=== PATIENT | male | born 1980 | race Caucasian/White ===

== ENCOUNTER 2017-05-23 15:26 | Emergency (ER) | payer OTHER ==
--- NOTE | 2017-05-23 16:19 | ED CLINICAL REPORT ---
Clinical Report - Physicians/Mid Levels [facility] [address] [place] [address] 05/23/2017 15:27 Patient: JEFFERSON RAY Time Seen: 15:32; upon arrival, initial patient contact, initial documentation, patient care assumed. Arrived- By private vehicle. Historian- patient. HISTORY OF PRESENT ILLNESS Chief Complaint: LESION. This started today and is still present. Not itchy or burning. It is described as painful. It has been located on the right hand. A possible cause has been identified. He had a recent spider bite (says he was reaching into wood pile and got bit by brown recluse spider). Similar symptoms previously: Chronically, as bad. Recent medical care: Not recently seen/assessed. REVIEW OF SYSTEMS No fever. All systems otherwise negative, except as recorded above. PAST HISTORY See nurses notes. ADDITIONAL SURGERIES: Tonsillectomy. Urethra repair. --15:44 Mitesh Vazquez R.N. SOCIAL HISTORY Heavy tobacco smoker. History of heavy IV drug use: heroin, methamphetamines. Recently used drugs. No alcohol use. No recent travel. Is a local resident. FAMILY HISTORY Negative. ADDITIONAL NOTES The nursing notes have been reviewed with agreement regarding the chief complaint, HPI, ROS, PMH and patient medications and allergies. PHYSICAL EXAM Vital Signs: 05/23/2017 15:37 BP: 146/90. HR: 119. RR: 20. O2 saturation: 100%. Temp: 97.7 F. Have been reviewed as abnormal and appear to be correct. Blood pressure normal. Tachycardic. Respiratory rate normal. Temperature normal. Oxygen saturation normal. Appearance: Alert. Oriented X3. No acute distress. (pt drowsy, and appears under the influence). Eyes: Pupils equal, round and reactive to light. Conjunctivae and eyelids normal. Neck: Neck supple. Respiratory: No respiratory distress. Skin: Skin warm and dry. Normal skin color. No rash. Normal skin turgor. (pt's skin is a mess, dirty, unkept, numerous iv track berg, scars, some are scabbed over, R top of hand near 4th and 5th metacarpal swollen, warm and erythema, no abscess seen, and other wounds/berg do not appear to be infected). Extremities: Normal external inspection. Extremities nontender. Neuro: Oriented X 3. No motor deficit. No sensory deficit. PROGRESS AND PROCEDURES Patient counseled in person regarding the patient's stable condition and diagnosis. Differential Diagnosis: Other possible considerations: substance abuse, iv track berg, cellulitis, abscess, insect bite/sting, mrsa. Above considerations are based on history and physical exam. Differential diagnosis was discussed with patient. Disposition: Discharged home in good and unchanged condition (16:03). Condition: good and stable. CLINICAL IMPRESSION Cellulitis of the right hand. Chronic substance abuse- heroin, methamphetamines with intoxication. INSTRUCTIONS Warnings: GENERAL WARNINGS: Return or contact your physician immediately if your condition worsens or changes unexpectedly, if not improving as expected, or if other problems arise. Specifically return if problem worsens. Prescription Medications: Keflex 500 mg: take 1 capsule orally every 6 hours for 10 days. No refill. Follow-up: Follow up with your doctor in about three days as needed and for wound check. Call for an appointment. Summary of care provided to patient. Understanding of the discharge instructions verbalized by patient. (Electronically signed by Elli Aleman A.R.N.P. 05/23/2017 18:20)
--- NOTE | 2017-05-23 16:19 | ED NURSING NOTES ---
Clinical Report - Nurses [facility] [address] [place] [address] 05/23/2017 15:27 Patient: JEFFERSON RAY TRIAGE Triage time 15:37. Acuity: LEVEL 3. Chief Complaint: INSECT BITE . abcess. Alert. No acute distress. SEPSIS SCREEN: Sepsis Screen. Infection suspected/documented. Heart rate greater than 90. Temperature not greater than 38.3 degrees C (101 degrees F). Respiratory rate not greater than 20. --15:45 Mitesh Vazquez R.N. 15:37 05/23/17. BP: 146/90. HR: 119. RR: 20. O2 saturation: 100% on room air. Temp: 97.7 F (oral). Pain level now 9/10. --15:45 Mitesh Vazquez R.N. Weight: 88.4 kg stated. Height/Length: 73 inches Per Patient. BMI: 25.7. --15:40 Mitesh Vazquez R.N. Medications None. --15:43 Mitesh Vazquez R.N. Allergies No Known Drug Allergy. --15:43 Mitesh Vazquez R.N. History Arrived by private vehicle. Historian: patient. Primary physician ([facility]). ( states he has a brown recluse bite from reaching into a wood pile this morning.). Location - right hand. This started just prior to arrival. It is described as painful. 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 SOCIAL HX: Heavy tobacco smoker (cigarette)- less than 1 pack per day. History of IV drug use: heroin, methamphetamines. Recently used drugs yesterday. No alcohol use. ABUSE ASSESSMENT: Abuse assessment: The patient was asked "Do you feel safe in your home?". No report of abuse. FALL RISK ASSESSMENT: Fall risk assessment completed. No fall risk identified. NUTRITIONAL RISK ASSESSMENT: The nutritional risk assessment revealed no deficiencies. FUNCTIONAL ASSESSMENT: Functional assessment: no impairments noted. LEARNING NEEDS ASSESSMENT: The learning needs assessment revealed no barriers. SKIN INTEGRITY ASSESSMENT: Skin integrity risk assessment completed. No skin integrity risk identified. --15:45 Mitesh Vazquez R.N. ADDITIONAL SURGERIES: Tonsillectomy. Urethra repair. --15:44 Mitesh Vazquez R.N. Interventions ID band on patient. To treatment room. --15:45 Mitesh Vazquez R.N. PHYSICAL ASSESSMENT Ambulatory to room. GENERAL / NEURO / PSYCH: Appears anxious. ( appears to be under the influence of street drugs. Pt is eating ice cream in triage and difficult to redirect). RESPIRATORY: Respirations not labored. CVS: Pulses within normal limits. GI / : Abdomen nontender. SKIN: Skin lesion present- multiple begining abcesses to bilat arms. Fresh track berg to bilat arms. Extensive scar tissue. Swelling on the right forearm and right hand. --15:47 Mitesh Vazquez R.N. NURSING PROGRESS NOTES The plan of care for this patient has been created. Head of bed elevated. Call light placed in reach. Bed placed in lowest position. Brakes of bed on. Patient ready for evaluation- chart flagged. --15:47 Mitesh Vazquez R.N. 16:17 05/23/2017 Ibuprofen PO Tablets 800 mg given. Allergies verified and confirmed 5 rights. --16:32 Temitope Keating. DISPOSITION / DISCHARGE Departure time: 16:23 May 23 2017. Condition at departure: improved. The goals identified in the patient's plan of care were met. No learning barriers present. Discharge instructions provided and reviewed with the patient. Reviewed warnings (Patient verbalized understanding of importance of taking entire course of antibiotics.). Reviewed medication(s). Prescription(s) given to the patient (keflex). Treatments reviewed. Reviewed referral to a primary care physician for followup. Patient verbalized understanding. Written instructions provided in Mongolian. The patient was discharged by the nurse practitioner. He was discharged home and unaccompanied at time of discharge. He left the Emergency Department ambulatory and via private vehicle. FALL RISK ASSESSMENT: Fall risk assessment completed. No fall risk identified. --16:28 Temitope Keating 16:23 05/23/17. BP: deferred. HR: deferred. RR: deferred. O2 saturation: deferred. Temp: deferred. Pain level now deferred. --16:28 Temitope Keating. Locked/Released at 05/23/2017 16:32 by Temitope Keating,
--- NOTE | 2017-05-23 16:19 | ED NURSING NOTES ---
Clinical Report - Nurses [facility] [address] [place] [address] 05/23/2017 15:27 Patient: JEFFERSON RAY TRIAGE Triage time 15:37. Acuity: LEVEL 3. Chief Complaint: INSECT BITE . abcess. Alert. No acute distress. SEPSIS SCREEN: Sepsis Screen. Infection suspected/documented. Heart rate greater than 90. Temperature not greater than 38.3 degrees C (101 degrees F). Respiratory rate not greater than 20. --15:45 Mitesh Vazquez R.N. 15:37 05/23/17. BP: 146/90. HR: 119. RR: 20. O2 saturation: 100% on room air. Temp: 97.7 F (oral). Pain level now 9/10. --15:45 Mitesh Vazquez R.N. Weight: 88.4 kg stated. Height/Length: 73 inches Per Patient. BMI: 25.7. --15:40 Mitesh Vazquez R.N. Medications None. --15:43 Mitesh Vazquez R.N. Allergies No Known Drug Allergy. --15:43 Mitesh Vazquez R.N. History Arrived by private vehicle. Historian: patient. Primary physician ([facility]). ( states he has a brown recluse bite from reaching into a wood pile this morning.). Location - right hand. This started just prior to arrival. It is described as painful. 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 SOCIAL HX: Heavy tobacco smoker (cigarette)- less than 1 pack per day. History of IV drug use: heroin, methamphetamines. Recently used drugs yesterday. No alcohol use. ABUSE ASSESSMENT: Abuse assessment: The patient was asked "Do you feel safe in your home?". No report of abuse. FALL RISK ASSESSMENT: Fall risk assessment completed. No fall risk identified. NUTRITIONAL RISK ASSESSMENT: The nutritional risk assessment revealed no deficiencies. FUNCTIONAL ASSESSMENT: Functional assessment: no impairments noted. LEARNING NEEDS ASSESSMENT: The learning needs assessment revealed no barriers. SKIN INTEGRITY ASSESSMENT: Skin integrity risk assessment completed. No skin integrity risk identified. --15:45 Mitesh Vazquez R.N. ADDITIONAL SURGERIES: Tonsillectomy. Urethra repair. --15:44 Mitesh Vazquez R.N. Interventions ID band on patient. To treatment room. --15:45 Mitesh Vazquez R.N. PHYSICAL ASSESSMENT Ambulatory to room. GENERAL / NEURO / PSYCH: Appears anxious. ( appears to be under the influence of street drugs. Pt is eating ice cream in triage and difficult to redirect). RESPIRATORY: Respirations not labored. CVS: Pulses within normal limits. GI / : Abdomen nontender. SKIN: Skin lesion present- multiple begining abcesses to bilat arms. Fresh track berg to bilat arms. Extensive scar tissue. Swelling on the right forearm and right hand. --15:47 Mitesh Vazquez R.N. NURSING PROGRESS NOTES The plan of care for this patient has been created. Head of bed elevated. Call light placed in reach. Bed placed in lowest position. Brakes of bed on. Patient ready for evaluation- chart flagged. --15:47 Mitesh Vazquez R.N. 16:17 05/23/2017 Ibuprofen PO Tablets 800 mg given. Allergies verified and confirmed 5 rights. --16:32 Temitope Keating. DISPOSITION / DISCHARGE Departure time: 16:23 May 23 2017. Condition at departure: improved. The goals identified in the patient's plan of care were met. No learning barriers present. Discharge instructions provided and reviewed with the patient. Reviewed warnings (Patient verbalized understanding of importance of taking entire course of antibiotics.). Reviewed medication(s). Prescription(s) given to the patient (keflex). Treatments reviewed. Reviewed referral to a primary care physician for followup. Patient verbalized understanding. Written instructions provided in Mongolian. The patient was discharged by the nurse practitioner. He was discharged home and unaccompanied at time of discharge. He left the Emergency Department ambulatory and via private vehicle. FALL RISK ASSESSMENT: Fall risk assessment completed. No fall risk identified. --16:28 Temitope Keating 16:23 05/23/17. BP: deferred. HR: deferred. RR: deferred. O2 saturation: deferred. Temp: deferred. Pain level now deferred. --16:28 Temitope Keating. Locked/Released at 05/23/2017 16:32 by Temitope Keating,
--- NOTE | 2017-05-23 18:20 | ED MED RECONCILIATION SUMMARY ---
Patient: JEFFERSON RAY Medication Reconciliation Report [facility] VisitID: [id number] [address] [place] [address] 36y, M Registration Date/Time: 05/23/2017 Weight: 88.4 kg Height/Length: 73 in. BMI: 25.7 ALLERGIES: No Known Drug Allergy The patient's Home Medications are listed below: NONE. The source(s) of the original Home Medication information: Not obtained. The following Medications were given to the patient in the Emergency Department: Ibuprofen [PO] PO 800 mg, administered: 05/23/2017 4:17:00 PM The following Medications were prescribed to the patient: Keflex 500 mg: take 1 capsule orally every 6 hours for 10 days. No refill. -- Elli Aleman A.R.N.P.
--- NOTE | 2017-05-23 18:20 | ED MAR SUMMARY ---
..... Medication Administration Record [facility] [address] [place] [address] Patient: JEFFERSON RAY Visit ID: [id number] 36y, M Weight: 88.4 kg Height/Length: 73 in BMI: 25.7 ALLERGIES: No Known Drug Allergy Given 16:17 05/23/2017 Temitope Keating, Medication Administered: IBUPROFEN [PO], Dose: 800 mg Tablets PO. Medication Ordered: Ibuprofen PO 800 mg (NOW).
--- NOTE | 2017-05-23 18:20 | ED MAR SUMMARY ---
..... Medication Administration Record [facility] [address] [place] [address] Patient: JEFFERSON RAY Visit ID: [id number] 36y, M Weight: 88.4 kg Height/Length: 73 in BMI: 25.7 ALLERGIES: No Known Drug Allergy Given 16:17 05/23/2017 Temitope Keating, Medication Administered: IBUPROFEN [PO], Dose: 800 mg Tablets PO. Medication Ordered: Ibuprofen PO 800 mg (NOW).
--- NOTE | 2017-05-23 18:20 | ED ORDER SUMMARY ---
..... Patient: JEFFERSON RAY OrderSheet [facility] VisitID: [id number] [address] [place] [address] 36y, M Registration Date/Time: 05/23/2017 ORDER SHEET Weight: 88.4 kg (stated) Allergies: No Known Drug Allergy GENERAL ORDERS: MEDICATION ORDERS: Ibuprofen PO 800 mg (NOW) (16:31 05/23/2017 AScshashi verbal order read back to Daniel A.R.N.P.) (16:32 ASc) IV FLUIDS: ORDER SHEET NOTES: [Electronically signed by Temitope Keating (16:32 05/23/2017)] [Electronically signed by Elli Aleman.R.N.PToby (18:20 05/23/2017)] [Electronically locked/signed by Temitope Keating (16:32 05/23/2017)]
--- NOTE | 2017-05-23 18:20 | ED ORDER SUMMARY ---
..... Patient: JEFFERSON RAY OrderSheet [facility] VisitID: [id number] [address] [place] [address] 36y, M Registration Date/Time: 05/23/2017 ORDER SHEET Weight: 88.4 kg (stated) Allergies: No Known Drug Allergy GENERAL ORDERS: MEDICATION ORDERS: Ibuprofen PO 800 mg (NOW) (16:31 05/23/2017 AScshashi verbal order read back to Daniel A.R.N.P.) (16:32 ASc) IV FLUIDS: ORDER SHEET NOTES: [Electronically signed by Temitope Keating (16:32 05/23/2017)] [Electronically signed by Elli Aleman.R.N.PToby (18:20 05/23/2017)] [Electronically locked/signed by Temitope Keating (16:32 05/23/2017)]
--- NOTE | 2017-05-23 18:20 | ED DISCHARGE INSTRUCTIONS ---
Patient: JEFFERSON RAY General Instructions [facility] VisitID: [id number] [place] [address] 36y, M Registration Date/Time: 05/23/2017 Cellulitis of the right hand. Chronic substance abuse- heroin, methamphetamines with intoxication. INSTRUCTIONS Warnings: GENERAL WARNINGS: Return or contact your physician immediately if your condition worsens or changes unexpectedly, if not improving as expected, or if other problems arise. Specifically return if problem worsens. Prescription Medications: Keflex 500 mg: take 1 capsule orally every 6 hours for 10 days. No refill. Follow-up: Follow up with your doctor in about three days as needed and for wound check. Call for an appointment. Summary of care provided to patient. Understanding of the discharge instructions verbalized by patient. ADDITIONAL INFORMATION Cellulitis You have an infection of the skin known as cellulitis. This usually starts with a scrape, cut, insect bite, blister or other opening in the skin which becomes infected. This is a serious condition. It must be watched closely to be sure the infection is not spreading. With antibiotic treatment, the size of the red area will gradually shrink in size until the skin returns to normal. This will take 7-10 days. The red area should never increase in size once the antibiotic medicine has been started. Occasionally, an infection will be resistant to one antibiotic and another one will have to be used. Home Care: 1) Limit the use of the affected part, since excess movement can cause the infection to spread. 2) If the infection is on your leg, walk as little as possible during the first few days of the treatment. Keep your leg elevated while sitting. This will reduce swelling. 3) Take all of the antibiotic medicine exactly as directed until it is gone. Be careful not to miss any doses, especially during the first seven days. Follow Up with your doctor or this facility as directed. Check the infected area daily for the warning signs listed below. Get Prompt Medical Attention if any of the following occur: -- Spreading area of redness -- Increasing swelling or pain -- Appearance of pus or drainage -- Fever over 100.4 F (38.0 C) oral, or over 101.4 F (38.6 C) rectal, after two days on antibiotics Staph Infection (MRSA) "Staph" is the short name for the common bacteria called "staphylococcus aureus". Staph bacteria are often present on the skin without causing an infection. If it gets under the skin an infection occurs. This causes redness, tenderness, swelling and sometimes fluid drainage. MRSA stands for "Methicillin-Resistant Staph Aureus". Unlike a common staph infection, MRSA bacteria are resistant to the usual antibiotics and harder to treat. Also, MRSA is more toxic than common staph bacteria. It can spread quickly throughout the body and cause a life-threatening illness. MRSA is spread to others by direct physical contact with the bacteria. MRSA can also be transmitted from items contaminated by a person who has the bacteria, such as bandages, towels, bed sheets, or sports equipment. It is not spread through the air. Once you have a MRSA skin infection, you are at risk of having it recur in the future. If MRSA infection is suspected, the doctor may take a wound culture to confirm the diagnosis. Any abscess will be drained. One or sometimes two antibiotics that work against MRSA will be prescribed. Home Care: 1) Take any antibiotics prescribed exactly as directed until they are gone. 2) Follow the same washing procedures as outlined for Household Members below. 3) Keep draining wounds covered with clean, dry bandages. Change dressings as they become soiled. 4) You and those in contact with you should wash their hands frequently with soap and warm water or use an alcohol-based hand meter reader inspector. Do this after each time you change the bandage or touch the wound. 5) Avoid sharing personal items such as towels, washcloths, razors, clothing, or uniforms. Wash soiled sheets, towels or clothes in hot water with laundry detergent. Use an automatic clothes dryer set on high to kill any remaining bacteria. 6) Remove any artificial nails and nail mauritian. 7) If you use a gym, wipe down equipment before and after each use. Treatment Of Household Members If you have been diagnosed with possible MRSA infection, those living with you are at higher risk of carrying the bacteria on their skin or in their nose, even if there is no sign of infection. Bacteria must be removed from the skin of all household members (including you) at the same time, so that it is not passed back and forth. Advise them to remove the bacteria as follows: Wash your whole body (scalp to toes) daily for five days with Hibiclens (chlorhexidine). Scrub fingernails with a brush for one minute twice a day. If any skin infections are present (boils, abscess, infected cut) these must be treated by a doctor. Washing alone will not treat a MRSA infection. Clean counter tops and children's toys; do not share personal items such as toothbrush and razors. It is okay to share glasses, plates, utensils. If antibiotic ointment was prescribed use it as directed. Follow Up with your doctor or as advised by our staff. If a wound culture was taken, call as directed in two days to obtain the results. If the culture result is positive for MRSA, tell medical personnel in the future that you were treated for this type of infection. Get Prompt Medical Attention if any of the following occur: -- Increasing redness, swelling or pain -- Red streaks in the skin around the wound -- Weakness or dizziness -- New appearance of pus or drainage from the wound -- New fever over 100.4 F (38.0 C) Drug Abuse Use and abuse of such drugs as marijuana, amphetamines (speed, crank), cocaine, heroin or prescription pain medicines (Vicodin, codeine), sedatives and sleeping pills (Valium, Klonopin), PCP, mescaline and LSD may lead to addiction or dependence. Once this occurs, you are at greater risk for any of the following: Craving for the drug and unable to stop using the drug even though you think you want to stop (psychological dependence) Drug withdrawal symptoms if you stop taking the drug (physical dependence) Loss of your job or your family Arrest, conviction and fdc sentence for possession of an illegal substance or for driving under the influence of such a substance Accidental injuries to yourself or others while you are under the influence of the drug (in a car or at home). HIV infection (much greater risk if you use IV drugs) Other sexually transmitted diseases (herpes, chlamydia, gonorrhea and others) Severe and fatal infection of the heart valves (if you use IV drugs) Stroke, heart attack, hepatitis B or C, kidney failure from overdose Home Care: Admit you have a drug problem. Ask for help from your family and close friends. Seek professional help. This could be in the form of individual psychotherapy or counseling or an outpatient, inpatient, or residential drug treatment program. Join a self-help group for drug abuse. Avoid friends who abuse drugs themselves or tempt you to continue abusing drugs. Eat a balanced diet and begin a regular exercise program. Follow Up with your doctor or as advised by our staff. Contact one of the resources below for help. National [place] on Alcoholism and Drug Dependence www.ncadd.org 981-730-DEZC Narcotics Anonymous www.na.org 851-460-6561 National Alcohol and Substance Abuse Information Center (for referral to treatment programs) www.addictionThink [employer] 159-720-1253 Get Prompt Medical Attention if any of the following occur: Agitation, anxiety, unable to sleep Unintended weight loss (more than 10 to 15 pounds over 3 months) Seizure Chest pain Fever of 100.4F (38C) or higher, or as directed by your healthcare provider Excess drowsiness or inability to be awakened Shortness of breath Slow breathing under 8 breaths per minute Cough with colored sputum Redness, swelling or tenderness at an injection site Cephalexin Monohydrate Oral tablet What is this medicine? CEPHALEXIN (sef a KENNA in) is a cephalosporin antibiotic. It is used to treat certain kinds of bacterial infections It will not work for colds, flu, or other viral infections. How should I use this medicine? Take this medicine by mouth with a full glass of water. Follow the directions on the prescription label. This medicine can be taken with or without food. Take your medicine at regular intervals. Do not take your medicine more often than directed. Take all of your medicine as directed even if you think you are better. Do not skip doses or stop your medicine early. Talk to your flight attendant/inflight manager regarding the use of this medicine in children. While this drug may be prescribed for selected conditions, precautions do apply. What side effects may I notice from receiving this medicine? Side effects that you should report to your doctor or health critical care specialist as soon as possible: allergic reactions like skin rash, itching or hives, swelling of the face, lips, or tongue breathing problems pain or trouble passing urine redness, blistering, peeling or loosening of the skin, including inside the mouth severe or watery diarrhea unusually weak or tired yellowing of the eyes, skin Side effects that usually do not require medical attention (report to your doctor or health critical care specialist if they continue or are bothersome): gas or heartburn genital or anal irritation headache joint or muscle pain nausea, vomiting What may interact with this medicine? probenecid some other antibiotics What if I miss a dose? If you miss a dose, take it as soon as you can. If it is almost time for your next dose, take only that dose. Do not take double or extra doses. There should be at least 4 to 6 hours between doses. Where should I keep my medicine? Keep out of the reach of children. Store at room temperature between 59 and 86 degrees F (15 and 30 degrees C). Throw away any unused medicine after the expiration date. What should I tell my health care provider before I take this medicine? They need to know if you have any of these conditions: kidney disease stomach or intestine problems, especially colitis an unusual or allergic reaction to cephalexin, other cephalosporins, penicillins, other antibiotics, medicines, foods, dyes or preservatives or trying to get breast-feeding What should I watch for while using this medicine? Tell your doctor or health critical care specialist if your symptoms do not begin to improve in a few days. Do not treat diarrhea with over the counter products. Contact your doctor if you have diarrhea that lasts more than 2 days or if it is severe and watery. If you have diabetes, you may get a false-positive result for sugar in your urine. Check with your doctor or health critical care specialist. You have been given the following additional information: Cellulitis MRSA Skin Infection, Suspected Or Confirmed Drug Abuse Cephalexin Monohydrate Oral tablet (Electronically signed by Elli Aleman A.R.NNeno 05/23/2017 18:20)
--- NOTE | 2017-05-23 18:20 | ED DISCHARGE INSTRUCTIONS ---
Patient: JEFFERSON RAY General Instructions [facility] VisitID: [id number] [place] [address] 36y, M Registration Date/Time: 05/23/2017 Cellulitis of the right hand. Chronic substance abuse- heroin, methamphetamines with intoxication. INSTRUCTIONS Warnings: GENERAL WARNINGS: Return or contact your physician immediately if your condition worsens or changes unexpectedly, if not improving as expected, or if other problems arise. Specifically return if problem worsens. Prescription Medications: Keflex 500 mg: take 1 capsule orally every 6 hours for 10 days. No refill. Follow-up: Follow up with your doctor in about three days as needed and for wound check. Call for an appointment. Summary of care provided to patient. Understanding of the discharge instructions verbalized by patient. ADDITIONAL INFORMATION Cellulitis You have an infection of the skin known as cellulitis. This usually starts with a scrape, cut, insect bite, blister or other opening in the skin which becomes infected. This is a serious condition. It must be watched closely to be sure the infection is not spreading. With antibiotic treatment, the size of the red area will gradually shrink in size until the skin returns to normal. This will take 7-10 days. The red area should never increase in size once the antibiotic medicine has been started. Occasionally, an infection will be resistant to one antibiotic and another one will have to be used. Home Care: 1) Limit the use of the affected part, since excess movement can cause the infection to spread. 2) If the infection is on your leg, walk as little as possible during the first few days of the treatment. Keep your leg elevated while sitting. This will reduce swelling. 3) Take all of the antibiotic medicine exactly as directed until it is gone. Be careful not to miss any doses, especially during the first seven days. Follow Up with your doctor or this facility as directed. Check the infected area daily for the warning signs listed below. Get Prompt Medical Attention if any of the following occur: -- Spreading area of redness -- Increasing swelling or pain -- Appearance of pus or drainage -- Fever over 100.4 F (38.0 C) oral, or over 101.4 F (38.6 C) rectal, after two days on antibiotics Staph Infection (MRSA) "Staph" is the short name for the common bacteria called "staphylococcus aureus". Staph bacteria are often present on the skin without causing an infection. If it gets under the skin an infection occurs. This causes redness, tenderness, swelling and sometimes fluid drainage. MRSA stands for "Methicillin-Resistant Staph Aureus". Unlike a common staph infection, MRSA bacteria are resistant to the usual antibiotics and harder to treat. Also, MRSA is more toxic than common staph bacteria. It can spread quickly throughout the body and cause a life-threatening illness. MRSA is spread to others by direct physical contact with the bacteria. MRSA can also be transmitted from items contaminated by a person who has the bacteria, such as bandages, towels, bed sheets, or sports equipment. It is not spread through the air. Once you have a MRSA skin infection, you are at risk of having it recur in the future. If MRSA infection is suspected, the doctor may take a wound culture to confirm the diagnosis. Any abscess will be drained. One or sometimes two antibiotics that work against MRSA will be prescribed. Home Care: 1) Take any antibiotics prescribed exactly as directed until they are gone. 2) Follow the same washing procedures as outlined for Household Members below. 3) Keep draining wounds covered with clean, dry bandages. Change dressings as they become soiled. 4) You and those in contact with you should wash their hands frequently with soap and warm water or use an alcohol-based hand osha inspector. Do this after each time you change the bandage or touch the wound. 5) Avoid sharing personal items such as towels, washcloths, razors, clothing, or uniforms. Wash soiled sheets, towels or clothes in hot water with laundry detergent. Use an automatic clothes dryer set on high to kill any remaining bacteria. 6) Remove any artificial nails and nail equatorial guinean. 7) If you use a gym, wipe down equipment before and after each use. Treatment Of Household Members If you have been diagnosed with possible MRSA infection, those living with you are at higher risk of carrying the bacteria on their skin or in their nose, even if there is no sign of infection. Bacteria must be removed from the skin of all household members (including you) at the same time, so that it is not passed back and forth. Advise them to remove the bacteria as follows: Wash your whole body (scalp to toes) daily for five days with Hibiclens (chlorhexidine). Scrub fingernails with a brush for one minute twice a day. If any skin infections are present (boils, abscess, infected cut) these must be treated by a doctor. Washing alone will not treat a MRSA infection. Clean counter tops and children's toys; do not share personal items such as toothbrush and razors. It is okay to share glasses, plates, utensils. If antibiotic ointment was prescribed use it as directed. Follow Up with your doctor or as advised by our staff. If a wound culture was taken, call as directed in two days to obtain the results. If the culture result is positive for MRSA, tell medical personnel in the future that you were treated for this type of infection. Get Prompt Medical Attention if any of the following occur: -- Increasing redness, swelling or pain -- Red streaks in the skin around the wound -- Weakness or dizziness -- New appearance of pus or drainage from the wound -- New fever over 100.4 F (38.0 C) Drug Abuse Use and abuse of such drugs as marijuana, amphetamines (speed, crank), cocaine, heroin or prescription pain medicines (Vicodin, codeine), sedatives and sleeping pills (Valium, Klonopin), PCP, mescaline and LSD may lead to addiction or dependence. Once this occurs, you are at greater risk for any of the following: Craving for the drug and unable to stop using the drug even though you think you want to stop (psychological dependence) Drug withdrawal symptoms if you stop taking the drug (physical dependence) Loss of your job or your family Arrest, conviction and half-way sentence for possession of an illegal substance or for driving under the influence of such a substance Accidental injuries to yourself or others while you are under the influence of the drug (in a car or at home). HIV infection (much greater risk if you use IV drugs) Other sexually transmitted diseases (herpes, chlamydia, gonorrhea and others) Severe and fatal infection of the heart valves (if you use IV drugs) Stroke, heart attack, hepatitis B or C, kidney failure from overdose Home Care: Admit you have a drug problem. Ask for help from your family and close friends. Seek professional help. This could be in the form of individual psychotherapy or counseling or an outpatient, inpatient, or residential drug treatment program. Join a self-help group for drug abuse. Avoid friends who abuse drugs themselves or tempt you to continue abusing drugs. Eat a balanced diet and begin a regular exercise program. Follow Up with your doctor or as advised by our staff. Contact one of the resources below for help. National [place] on Alcoholism and Drug Dependence www.ncadd.org 135-313-WLHR Narcotics Anonymous www.na.org 781-457-3533 National Alcohol and Substance Abuse Information Center (for referral to treatment programs) www.addictionMobile [employer] 182-846-5452 Get Prompt Medical Attention if any of the following occur: Agitation, anxiety, unable to sleep Unintended weight loss (more than 10 to 15 pounds over 3 months) Seizure Chest pain Fever of 100.4F (38C) or higher, or as directed by your healthcare provider Excess drowsiness or inability to be awakened Shortness of breath Slow breathing under 8 breaths per minute Cough with colored sputum Redness, swelling or tenderness at an injection site Cephalexin Monohydrate Oral tablet What is this medicine? CEPHALEXIN (sef a KENNA in) is a cephalosporin antibiotic. It is used to treat certain kinds of bacterial infections It will not work for colds, flu, or other viral infections. How should I use this medicine? Take this medicine by mouth with a full glass of water. Follow the directions on the prescription label. This medicine can be taken with or without food. Take your medicine at regular intervals. Do not take your medicine more often than directed. Take all of your medicine as directed even if you think you are better. Do not skip doses or stop your medicine early. Talk to your brine tank tender regarding the use of this medicine in children. While this drug may be prescribed for selected conditions, precautions do apply. What side effects may I notice from receiving this medicine? Side effects that you should report to your doctor or health care asst as soon as possible: allergic reactions like skin rash, itching or hives, swelling of the face, lips, or tongue breathing problems pain or trouble passing urine redness, blistering, peeling or loosening of the skin, including inside the mouth severe or watery diarrhea unusually weak or tired yellowing of the eyes, skin Side effects that usually do not require medical attention (report to your doctor or health care asst if they continue or are bothersome): gas or heartburn genital or anal irritation headache joint or muscle pain nausea, vomiting What may interact with this medicine? probenecid some other antibiotics What if I miss a dose? If you miss a dose, take it as soon as you can. If it is almost time for your next dose, take only that dose. Do not take double or extra doses. There should be at least 4 to 6 hours between doses. Where should I keep my medicine? Keep out of the reach of children. Store at room temperature between 59 and 86 degrees F (15 and 30 degrees C). Throw away any unused medicine after the expiration date. What should I tell my health care provider before I take this medicine? They need to know if you have any of these conditions: kidney disease stomach or intestine problems, especially colitis an unusual or allergic reaction to cephalexin, other cephalosporins, penicillins, other antibiotics, medicines, foods, dyes or preservatives or trying to get breast-feeding What should I watch for while using this medicine? Tell your doctor or health care asst if your symptoms do not begin to improve in a few days. Do not treat diarrhea with over the counter products. Contact your doctor if you have diarrhea that lasts more than 2 days or if it is severe and watery. If you have diabetes, you may get a false-positive result for sugar in your urine. Check with your doctor or health care asst. You have been given the following additional information: Cellulitis MRSA Skin Infection, Suspected Or Confirmed Drug Abuse Cephalexin Monohydrate Oral tablet (Electronically signed by Elli Aleman A.R.NNeno 05/23/2017 18:20)
--- NOTE | 2017-05-23 18:20 | ED MED RECONCILIATION SUMMARY ---
Patient: JEFFERSON RAY Medication Reconciliation Report [facility] VisitID: [id number] [address] [place] [address] 36y, M Registration Date/Time: 05/23/2017 Weight: 88.4 kg Height/Length: 73 in. BMI: 25.7 ALLERGIES: No Known Drug Allergy The patient's Home Medications are listed below: NONE. The source(s) of the original Home Medication information: Not obtained. The following Medications were given to the patient in the Emergency Department: Ibuprofen [PO] PO 800 mg, administered: 05/23/2017 4:17:00 PM The following Medications were prescribed to the patient: Keflex 500 mg: take 1 capsule orally every 6 hours for 10 days. No refill. -- Elli Aleman A.R.N.P.
== END 2017-05-23 16:23 | disposition home or self-care (01) ==
LOC: ED SRH 15:26
DX: L03.113 Cellulitis of right upper limb (principal); F11.129 Opioid abuse with intoxication, unspecified; F15.129 Other stimulant abuse with intoxication, unspecified; F17.210 Nicotine dependence, cigarettes, uncomplicated